=== PATIENT | male | born 1975 | race Caucasian/White ===

== ENCOUNTER 2016-12-12 19:29 | Emergency (ER) | payer BC ==
--- NOTE | 2016-12-12 19:54 | EDM.PDOC ---
ED HPI GENERAL MEDICAL PROBLEM - General Chief Complaint: Respiratory Problem Stated Complaint: LEFT SIDE PAIN/LUNGS Time Seen by Provider: 12/12/16 19:54 Source of Information: Reports: Patient History Limitations: Reports: No Limitations - History of Present Illness INITIAL COMMENTS - FREE TEXT/NARRATIVE: 41-year-old male presents the ED for evaluation of paroxysmal productive cough yellowish-green sputum for the last 3-4 days. He was ill last week in fact last November 30 and brought pocu-fkb-gfihgks medications and seemed to get better over the next 3-4 days. However last December 08 he started to feel ill once again with fever and body aches. I when sitting he is waking up completely soaked in diaphoresis. His appetite is decreased. He is febrile on examination occasional chills and can warm up in spite of the ambient temperature been in the 90s. He has a history of asthma. Is not appreciating increased wheezing. Does appreciate left lateral pleuritic chest pain radiating up into the left shoulder. Onset: Gradual Onset Date: 12/08/16 Duration: Day(s):, Getting Worse Location: Reports: Chest Quality: Reports: Ache Severity: Moderate Improves with: Reports: None Worsens with: Reports: Other Context: Denies: Activity (Coughing.), Exercise, Lifting, Sick Contact, Trauma, Other Associated Symptoms: Reports: Chest Pain, Cough (Pleuritic chest pain with coughing), cough w sputum (Greenish in color), Diaphoresis, Fever/Chills, Loss of Appetite, Malaise, Weakness. 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.), Other (see below) Left Chest Pain Score (Numeric/FACES): 5 - Related Data Allergies Allergy/AdvReac Type Severity Reaction Status Date / Time No Known Allergies Allergy Verified 12/12/16 19:49 Home Meds: Home Meds Albuterol [Proventil HFA] 2 puff INH Q4H PRN 12/12/16 [History] Levofloxacin [Levaquin] 500 mg PO Q24H #10 tablet 12/12/16 [Rx] amLODIPine [Norvasc] 2.5 mg PO DAILY 12/12/16 [History] Past Medical History Cardiovascular History: Reports: Hypertension Respiratory History: Reports: Asthma Genitourinary History: Reports: Other (See Below) Other Genitourinary History: vasectomy - Past Surgical History HEENT Surgical History: Reports: SENTHIL Social & Family History - Living Situation & Occupation Occupation: Employed ED ROS GENERAL - Review of Systems Review Of Systems: See Below Constitutional: Reports: Fever, Chills, Malaise, Weakness, Fatigue, Decreased Appetite. Denies: Weight Loss HEENT: Reports: No Symptoms Respiratory: Reports: Shortness of Breath, Pleuritic Chest Pain, Cough (Left- sided chest.), Sputum (Or green sputum.). Denies: Wheezing Cardiovascular: Reports: No Symptoms Endocrine: Reports: No Symptoms GI/Abdominal: Reports: No Symptoms. Denies: Constipation, Diarrhea : Reports: No Symptoms Musculoskeletal: Reports: No Symptoms Skin: Reports: No Symptoms Neurological: Reports: No Symptoms Psychiatric: Reports: No Symptoms Hematologic/Lymphatic: Reports: No Symptoms Immunologic: Reports: No Symptoms ED EXAM, GENERAL - Physical Exam Exam: See Below Exam Limited By: No Limitations General Appearance: Alert, WD/WN, Other (Very warm to palpation. RSV hoarse voice.) Eye Exam: Bilateral Eye: Normal Inspection Ear Exam: Right Ear: TM Bulging (ZA present.) Nose: Normal Inspection, Normal Mucosa Throat/Mouth: Normal Inspection, Normal Lips, Normal Teeth, Normal Oropharynx, Other (Mild erythema of the posterior oropharynx. Tongue tonsils and uvula normal.) Head: Atraumatic, Normocephalic Neck: Normal Inspection, Supple, Non-Tender, Full Range of Motion. No: Lymphadenopathy (L), Lymphadenopathy (R) Respiratory/Chest: Lungs Clear, Normal Breath Sounds, No Accessory Muscle Use, Respiratory Distress. No: Crackles, Rales, Rhonchi, Wheezing Cardiovascular: Normal Peripheral Pulses, Regular Rate, Rhythm, No Edema, No Murmur, No Rub GI/Abdominal: Normal Bowel Sounds, Soft, Non-Tender, No Organomegaly, No Distention (Male) Exam: No Hernia, Normal Inspection Rectal (Males) Exam: Normal Exam, Normal Rectal Tone Back Exam: Normal Inspection, Full Range of Motion Extremities: Normal Inspection, Normal Range of Motion, Non-Tender, Normal Capillary Refill Neurological: Alert, Oriented, CN II-XII Intact, Normal Cognition, Normal Gait Psychiatric: Normal Affect, Normal Mood Skin Exam: Warm, Dry, Intact, Normal Color, No Rash Course - Vital Signs Last Recorded V/S: Last Vital Signs Temp 37.4 C 12/12/16 19:45 Pulse 91 12/12/16 19:45 Resp 20 12/12/16 19:45 BP Pulse Ox 95 12/12/16 19:45 - Orders/Labs/Meds Orders: Active Orders 24 hr Category Date Time Status Chest 2V [CR] Stat Exams 12/12/16 20:00 Taken Labs: Laboratory Tests 12/12/16 12/12/16 Range/Units 20:10 20:10 WBC 15.30 H (4.23-9.07) K/mm3 RBC 4.60 L (4.63-6.08) M/mm3 Hgb 13.9 (13.7-17.5) gm/L Hct 42.0 (40.1-51.0) % MCV 91.3 (79.0-92.2) fl MCH 30.2 (25.7-32.2) pg MCHC 33.1 (32.2-35.5) g/dl RDW Std Deviation 44.1 H (35.1-43.9) fL Plt Count 255 (163-337) K/mm3 MPV 9.5 (9.4-12.3) fl Neutrophils % (Manual) 88 H (40-60) % Band Neutrophils % 0 (0-10) % Lymphocytes % (Manual) 7 L (20-40) % Atypical Lymphs % 0 % Monocytes % (Manual) 4 (2-10) % Eosinophils % (Manual) 1 (0.8-7.0) % Basophils % (Manual) 0 L (0.2-1.2) Platelet Estimate Adequate RBC Morph Comment Normal Sodium 139 (136-145) mEq/L Potassium 3.8 (3.5-5.1) mEq/L Chloride 101 (98-107) mEq/L Carbon Dioxide 30 (21-32) mEq/L Anion Gap 11.8 (5-15) BUN 9 (7-18) mg/dL Creatinine 1.1 (0.7-1.3) mg/dL Est Cr Clr Drug Dosing 89.27 mL/min Estimated GFR (MDRD) > 60 (>60) mL/min BUN/Creatinine Ratio 8.2 L (14-18) Glucose 114 H (74-106) mg/dL Calcium 8.9 (8.5-10.1) mg/dL Total Bilirubin 0.7 (0.2-1.0) mg/dL AST 16 (15-37) U/L ALT 25 (16-63) U/L Alkaline Phosphatase 76 (46-116) U/L C-Reactive Protein 18.3 H* (<1.0) mg/dL Total Protein 7.8 (6.4-8.2) g/dl Albumin 3.9 (3.4-5.0) g/dl Globulin 3.9 gm/dL Albumin/Globulin Ratio 1.0 (1-2) - Radiology Interpretation Free Text/Narrative:: 41-year-old male presents the ED with fever chills and productive yellowish greenish sputum for the last 3-4 days. This is predated by what sounds like an upper sprinter tract infection which was likely viral in origin which he got better from. Symptoms started again December 08 and have progressed over the last 4- 5 days to fever chills productive cough and decreased appetite. He does have associated left-sided pleuritic pain in his left lateral upper chest radiating towards the shoulder. No hemoptysis. History of asthma and uses albuterol inhaler when necessary. Exam reveals absence of any adventitial sounds and no wheezes. Plan routine labs CBC CMP and CRP in 2 view chest x-ray to be obtained. - Re-Assessments/Exams Free Text/Narrative Re-Assessment/Exam: 12/12/16 20:53two-view chest x-ray carried out reveals a infiltrate in the bottom of the left long compatible with pneumonia. there is also a possible mild peripheral infiltrate in the right middle lobe as well.Chemistry is back and reveals only a markedly elevated CRP at 18.3.patient be treated with Levaquin 500 mg orally once daily for the next 10 days. Departure - Departure Time of Disposition: 20:58 Disposition: Home, Self-Care 01 Condition: fair Clinical Impression: Pneumonia Qualifiers: Pneumonia type: due to unspecified organism Laterality: left Lung location: lower lobe of lung Qualified Code(s): J18.1 - Lobar pneumonia, unspecified organism - Discharge Information Prescriptions: Levofloxacin [Levaquin] 500 mg PO Q24H #10 tablet Instructions: Community-Acquired Pneumonia, Adult, [id number] Referrals: PCP,Not In Area [Primary Care Provider] - Forms: ED Department Discharge, Return to Work/School Form Additional Instructions: evaluation and he mentioned today in regards to increased fever chills and night sweats over the last 3 days 4 days. This was preceded by a upper respiratory tract infection which he managed to get through under home with over -the-counter medications. This likely was a viral infection which unfortunately turned into a bacterial infection. Chest x-ray reveals the infiltrate of pneumonia in the bottom of the left lung also in the periphery of the right mid lung. Treatment is therefore plenty of fluids rest and diet as able. Shortly suggest off work for the next 2 days. No will be written in this regard. Motrin 600 mg every 6 hours as needed for fever and body ache relief. Antibiotic is to be Levaquin 500 mg once daily for the next 10 days starting tonight. Expect marked improvement of the next 48 hours. - My Orders Last 24 Hours: My Active Orders 12/12/16 20:00 Chest 2V [CR] Stat - Assessment/Plan Last 24 Hours: My Active Orders 12/12/16 20:00 Chest 2V [CR] Stat
--- NOTE | 2016-12-16 09:36 | CR ---
Chest: Two views of the chest are obtained. Comparison: No previous study. Slight parenchymal density within the right midlung and left lower lung and left upper lung are seen most likely representing atelectasis. Diaphragms slightly flattened on the lateral view suggesting emphysematous change. Lungs otherwise are clear. Heart size and mediastinum are normal. Bony structures are unremarkable. Impression: 1. Findings as described above. Diagnostic code #3
== END 2016-12-12 21:30 | disposition home or self-care (01) ==
LOC: JD.ED 19:29
DX: J18.9 Pneumonia, unspecified organism (principal); I10 Essential (primary) hypertension; J45.909 Unspecified asthma, uncomplicated; Z79.899 Other long term (current) drug therapy; Z98.890 Other specified postprocedural states
CPT/HCPCS: 36415; 71020; 71020-26; 80053; 85025; 86140; 99283; 99284

== ENCOUNTER 2018-09-14 14:43 | Emergency (ER) | payer SELFPAY ==
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
[2018-09-14 15:41] VITALS: BP 145/98
== END 2018-09-14 15:40 | disposition home or self-care (01) ==
LOC: JD.ED 14:43
DX: J06.9 Acute upper respiratory infection, unspecified (principal); I10 Essential (primary) hypertension; J45.909 Unspecified asthma, uncomplicated; Z87.01 Personal history of pneumonia (recurrent)
CPT/HCPCS: 99282; 99284

== ENCOUNTER 2018-09-30 07:29 | Emergency (ER) | payer SELFPAY ==
[2018-09-30 07:42] VITALS: BP 173/93
[2018-09-30] MEDS ORDERED: Azithromycin 250 MG Tab PO ONE (08:23)
--- NOTE | 2018-09-30 08:28 | EDM.PDOC ---
ED HPI GENERAL MEDICAL PROBLEM - General Chief Complaint: Chest Pain Stated Complaint: UPPER LEFT SIDE PAIN Time Seen by Provider: 09/30/18 07:47 Source of Information: Reports: Patient, RN Notes Reviewed - History of Present Illness INITIAL COMMENTS - FREE TEXT/NARRATIVE: 43-year-old male comes in with cough, left lower chest discomfort with coughing and with deep breathing. He first became ill about 10-12 days ago with cough sore throat nasal congestion. The sore throat and nasal congestion is cleared but he has continued with a fairly nasty cough moderately productive of colored phlegm. The past 3-4 days he has had worsening discomfort left lower chest area with coughing deep breathing. No recent fever or chills. History of prior pneumonia. Left Chest Pain Score (Numeric/FACES): 3 - Related Data Allergies Allergy/AdvReac Type Severity Reaction Status Date / Time No Known Allergies Allergy Verified 09/30/18 07:41 Home Meds: Home Meds Albuterol [Proventil HFA] 2 puff INH Q4H PRN 12/12/16 [History] amLODIPine [Norvasc] 2.5 mg PO DAILY 12/12/16 [History] Albuterol Sulfate [Proair Hfa] 8.5 gm IH Q4H PRN #1 inhaler 09/14/18 [Rx] Past Medical History HEENT History: Reports: Impaired Vision Other HEENT History: wears eyeglasses Cardiovascular History: Reports: Hypertension Respiratory History: Reports: Asthma, Pneumonia, Recurrent Genitourinary History: Reports: Other (See Below) Other Genitourinary History: vasectomy Musculoskeletal History: Reports: Fracture - Past Surgical History HEENT Surgical History: Reports: LASIK Male Surgical History: Reports: Vasectomy Social & Family History - Caffeine Use Caffeine Use: Reports: Coffee - Living Situation & Occupation Occupation: Employed ED ROS GENERAL - Review of Systems Review Of Systems: See Below Constitutional: Denies: Fever, Chills, Diaphoresis HEENT: Reports: Rhinitis, Throat Pain (Gone). Denies: Sinus Problem Respiratory: Reports: Pleuritic Chest Pain, Cough. Denies: Shortness of Breath , Wheezing Cardiovascular: Reports: Chest Pain (With coughing) GI/Abdominal: Denies: Abdominal Pain, Nausea, Vomiting Musculoskeletal: Denies: Back Pain, Leg Pain Skin: Reports: No Symptoms Neurological: Reports: No Symptoms ED EXAM, GENERAL - Physical Exam Exam: See Below General Appearance: Alert, Mild Distress Nose: Normal Inspection Throat/Mouth: Normal Inspection Head: Atraumatic Neck: Supple, Full Range of Motion Respiratory/Chest: No Respiratory Distress, Lungs Clear, Normal Breath Sounds. No: Rhonchi, Wheezing Cardiovascular: Regular Rate, Rhythm GI/Abdominal: Soft, Non-Tender Extremities: Normal Inspection Neurological: Alert, Oriented, No Motor/Sensory Deficits Skin Exam: Warm, Dry, Normal Color Course - Vital Signs Last Recorded V/S: Last Vital Signs Temp 98.2 F 09/30/18 07:38 Pulse 77 09/30/18 07:38 Resp 18 09/30/18 07:38 BP 173/93 H 09/30/18 07:38 Pulse Ox 93 L 09/30/18 07:38 - Orders/Labs/Meds Meds: Medications Discontinued Medications Generic Name Dose Route Start Last Admin Trade Name Freq PRN Reason Stop Dose Admin Azithromycin 500 mg 09/30/18 08:23 09/30/18 08:33 Zithromax PO 09/30/18 08:24 500 mg ONETIME ONE Administration - Re-Assessments/Exams Free Text/Narrative Re-Assessment/Exam: 09/30/18 08:48 Chest x-ray shows what appears to be small infiltrate left lower base. Radiologist agrees and feels there might be slight increased density right base as well. See radiology report for details. Have given Zithromax 500 mg orally here in the ED, he is not septic, he is not toxic, sats are very good he is breathing and moving air comfortably. Discharge instructions as documented. Departure - Departure Time of Disposition: 08:25 Disposition: Home, Self-Care 01 Condition: Fair Clinical Impression: Pneumonia Qualifiers: Pneumonia type: due to unspecified organism Laterality: left Lung location: lower lobe of lung Qualified Code(s): J18.1 - Lobar pneumonia, unspecified organism - Discharge Information Instructions: Community-Acquired Pneumonia, Adult Referrals: Sherrie Moncada NP [Primary Care Provider] - Forms: ED Department Discharge Additional Instructions: Vaporizer steam as needed, alternate Tylenol and ibuprofen as needed for discomfort, you've been given your first dose of Zithromax 500 mg oral here in the ED this morning. Start the Z-Alverto tomorrow, take 500 mg tomorrow and then 250 mg daily for the next 4 days. The antibiotic is long acting, it will continue working in your system for about 5 days after you are done taking it. Follow-up with a clinic provider if not completely back to normal within 7-10 days as expected.
--- NOTE | 2018-09-30 08:42 | CR ---
Chest: Two views of the chest were obtained. Comparison: Prior chest x-ray of 04/13/17. Increased density is noted within both lung bases, worse on the left side. Upper lungs are clear. Heart size and mediastinum are normal. Bony structures are unremarkable. Impression: 1. Slight increased density within both lung bases. Mild areas of pneumonia are a possibility. Diagnostic code #3
== END 2018-09-30 08:34 | disposition home or self-care (01) ==
LOC: JD.ED 07:29
DX: J18.1 Lobar pneumonia, unspecified organism (principal); I10 Essential (primary) hypertension; Z79.899 Other long term (current) drug therapy
CPT/HCPCS: 71046; 99284; A9270; 99283